=== PATIENT | female | born 1950 | race Caucasian/White ===

== ENCOUNTER 2016-06-28 09:26 | Day surgery (SDC) | payer MEDICARE, BC ==
[~2016-06-28 09:26] MED LIST: Midazolam 1 MG/ML 2 ML SDV ONE; Propofol 200 MG/20 ML SDV ONE; fentaNYL 100 MCG/2 ML SDV ONE
[2016-06-28] MEDS ORDERED: Lactated Ringers 1,000 ML IV SCH (10:00)
[2016-06-28 12:59] VITALS: BP 117/60
--- NOTE | 2016-06-28 17:59 | OR ---
DATE OF PROCEDURE: 06/28/2016 PREOPERATIVE DIAGNOSIS: History of colon polyps. POSTOPERATIVE DIAGNOSES: Unremarkable colonoscopy, history of colon polyps. PROCEDURE: Colonoscopy to the cecum. SURGEON: Tong Barnes MD ANESTHESIA: IV anesthesia with monitored anesthesia care. INDICATION: This is a 66-year-old white female is here for a colonoscopy because of a history of colon polyps. She says her last colonoscopic exam was done three years ago. I counseled her for the procedure including risks and alternatives, and she gave her informed consent to proceed. DESCRIPTION OF PROCEDURE: The patient was placed in the left lateral decubitus position. IV anesthesia was administered by the Anesthesia Service. Time-out was held. A rectal exam was performed, which was unremarkable. The flexible video Olympus colonoscope was introduced through her anus, up her rectum, and out her colon all way to the cecum. Once the cecum was reached, the scope was slowly withdrawn examining the mucosa throughout. No mucosal abnormalities were noted. The scope was retroflexed in the rectum with the distal rectum appearing unremarkable. The scope was straightened and removed. She tolerated the procedure well. Tong Barnes MD /[id number]
== END 2016-06-28 13:15 | disposition home or self-care (01) ==
LOC: JP.SDS 09:26
PROVIDERS: ATTEND Surgery
DX: Z12.11 Encounter for screening for malignant neoplasm of colon (principal); Z86.010 Personal history of colon polyps; E78.5 Hyperlipidemia, unspecified; Z88.2 Allergy status to sulfonamides; Z88.8 Allergy status to other drugs, medicaments and biological substances
CPT/HCPCS: G0105; J2250; J2704; J3010

== ENCOUNTER 2021-07-05 07:53 | Day surgery (SDC) | payer MEDICARE ==
[2021-07-05] MEDS ORDERED: Lactated Ringers 1,000 ML IV SCH (08:30)
[2021-07-05 10:19] VITALS: BP 113/71; PULSE 68
== END 2021-07-05 10:35 | disposition home or self-care (01) ==
LOC: JP.SDS 07:53
PROVIDERS: ATTEND Family Medicine
DX: Z12.11 Encounter for screening for malignant neoplasm of colon (principal); K52.9 Noninfective gastroenteritis and colitis, unspecified; D12.4 Benign neoplasm of descending colon; E03.9 Hypothyroidism, unspecified; Z88.2 Allergy status to sulfonamides; Z88.8 Allergy status to other drugs, medicaments and biological substances; Z98.890 Other specified postprocedural states; Z87.891 Personal history of nicotine dependence
CPT/HCPCS: J2250; J2704; J3010; J7120